=== PATIENT | male | born 1970 | race Caucasian/White ===

== ENCOUNTER 2024-06-12 15:04 | Outpatient (AMB) | payer OTHER, SELFPAY ==
--- NOTE | 2024-06-12 15:23 | MHC.OFFWIV ---
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 Patient Tobacco Use Status: Former Tobacco user Allergies No Known Allergies Allergy (Unverified 06/12/24 15:26) Do you need a note to return to daycare/school/sports/work: No HPI HPI Comments History of Present Illness Details This is a 54-year-old male with a past medical history of ndr-fhrywsc-[id number] diabetes and hypertension presenting for evaluation of left knee pain that he has had for the past 1 week. Patient states he has ?repeatedly? twisted his left knee over the past 2 weeks when climbing stairs or getting into his vehicle while staying at a friend's house. Patient has been taking ibuprofen 800 mg 3 times daily and using ice without complete relief of his discomfort. Patient denies any recent falls, trauma or motor vehicle accidents. [facility] Social History Patient Tobacco Use Status: Former Tobacco user Review of Systems Const All systems reviewed & are unremarkable except as noted in HPI and below Denies body aches, Denies chills, Denies fatigue and Denies fever(s) Eyes Reports no additional complaints ENT Reports no additional complaints Card Reports no additional complaints Resp Reports no additional complaints GI Reports no additional complaints Reports no additional complaints Musc Reports arthralgias (left knee) and Reports joint swelling (left knee) Skin/Breast Reports system reviewed and no additional complaints, except as documented Neuro Reports no additional complaints Psych Reports no additional complaints Endo Reports no additional complaints and Denies fatigue Maxx/Lymph Reports no additional complaints Aller/Immun Reports no additional complaints Physical Exam Vital Signs: Last Vital Signs Pulse 84 06/12/24 15: BP 122/90 H 06/12/24 15:26 Pulse Ox 95 06/12/24 15:26 Oxygen Delivery Method Room Air 06/12/24 15:26 Const General: cooperative, healthy appearing, comfortable and no acute distress Nutritional Appearance: overweight Orientation/consciousness: patient oriented x3 Limitations: no limitations Skin General skin exam: no rashes or lesions noted Neuro General: patient oriented x3 Extrem Left lower extremity: normal to inspection, full ROM, edema (mild subjective edema left knee with mild warmth; no erythema, no effusion), no joint enlargement and knee Details: tenderness (medial anterior knee pain to palpation, no joint laxity), knee ligament exam normal, Matthew's Test Details: negative medially and laterally and warmth (mild anterior left knee warmth to touch without erythema); ROM normal and no ecchymosis Psych Appearance: grossly normal Mental Status: mental status grossly normal Insight: Good insight present (Psych) Judgement: Good judgement present (Psych) Assessment & Plan Assessment & Plan (1) Strain of left knee: Comment: Patient will continue taking ibuprofen 800 mg 3 times daily and is declining any new prescriptions of other anti-inflammatories at this time. Patient is encouraged to obtain a knee sleeve for compression. Imaging is deferred at this time. Code(s): S86.912A - Strain of unspecified muscle(s) and tendon(s) at lower leg level, left leg, initial encounter Qualifiers: Encounter type: initial encounter Qualified Code(s): S86.912A - Strain of unspecified muscle(s) and tendon(s) at lower leg level, left leg, initial encounter Plan: Ibuprofen 800 mg t.i.d., neoprene knee sleeve for compression to be worn daily, elevate left lower extremity when at rest. Patient will follow up with primary care provider to receive a referral for physical therapy evaluation or orthopedics if his pain persists. Coding Level of Care Code Est Pt Level 3 (39766) Diagnoses Strain of left knee, initial encounter S86.912A Encounter type: initial encounter Time Spent (min) 20
[2024-06-12 15:26] VITALS: BP 122/90; PULSE 84; O2SAT 95
--- OUTSIDE RECORDS SUMMARY | 2024-06-12 18:24 | XMS_ITS | Encounter Summary ---
Author Organization [facility] [place] [address] [place] [address] Care Team Providers Care Irrigation Tax Assessor Collector Name Role Phone Unavailable Primary Care Provider Unavailabl e Prior Encounters Date Type Department Care Team Description 03/19/2019 Converted 13x Documents [facility] [address] [place] [address] <No scans attached> 03/19/2019 Converted CPS Chart Documents [facility] [address] [place] [address] <No scans attached> Plan of Treatment Not on file Procedures Procedure Name Priority Date/Time Associated Diagnosis Comments 30 O AMALGAM 1 SURFACE Routine 1 3:00 AM EDT 19 O AMALGAM 1 SURFACE Routine 1 3:00 AM EDT 14 O AMALGAM 1 SURFACE Routine 1 3:00 AM EDT COMPREHENSIVE ORAL EVALUATION - NEW OR ESTABLISHED PATIENT Routine 06/25/2020 3:00 AM EDT PANORAMIC RADIOGRAPHIC IMAGE Routine 06/25/2020 3:00 AM EDT INTRAORAL - COMPREHENSIVE SERIES OF RADIOGRAPHIC IMAGES Routine 06/25/2020 3:00 AM EDT INTRAORAL PHOTO Routine 06/25/2020 3:00 AM EDT INTRAORAL PHOTO Routine 06/25/2020 3:00 AM EDT INTRAORAL PHOTO Routine 06/25/2020 3:00 AM EDT INTRAORAL PHOTO Routine 06/25/2020 3:00 AM EDT Visit Diagnoses Not on file
--- OUTSIDE RECORDS SUMMARY | 2024-06-12 18:24 | XMS_ITS | Clinical Summary ---
Author Organization [facility] [place] Address [address] [place] [address] Care Team Providers Care Fortune Teller Name Role Phone Unavailable Primary Care Provider Unavailabl e Social History Tobacco Use Types Packs/Day Years Used Date Smoking Tobacco: Never Assessed Sex and Gender Information Value Date Recorded Sex Assigned at Not on file Legal Sex Male 9:28 PM PDT Gender Identity Not on file Sexual Orientation Not on file Plan of Treatment Not on file
== END 2024-06-12 16:23 | disposition home or self-care (01) ==
PROVIDERS: PCP Nurse Practitioner Family; Visit Provider Physician Assistant
DX: S86.912A Strain of unspecified muscle(s) and tendon(s) at lower leg level, left leg, initial encounter (principal)

== ENCOUNTER → 2024-06-12 15:04 | Outpatient (BNVA) | payer OTHER, SELFPAY | PROVIDERS: PCP Nurse Practitioner Family; Visit Provider Physician Assistant | DX: S86.912A Strain of unspecified muscle(s) and tendon(s) at lower leg level, left leg, initial encounter (principal); E11.9 Type 2 diabetes mellitus without complications; I10 Essential (primary) hypertension; X58.XXXA Exposure to other specified factors, initial encounter; Y93.9 Activity, unspecified; Y92.9 Unspecified place or not applicable; Y99.9 Unspecified external cause status | CPT/HCPCS: 99212 ==

== ENCOUNTER 2024-06-30 12:17 | Outpatient (REF) | payer OTHER, SELFPAY ==
--- NOTE | ~2024-06-30 | XR_ITS ---
CLINICAL HISTORY: M25.562 - Pain in left knee --- Additional Notes or Special Instructions: twisting SAUMYA, anterior lachmans positive. 4 view left knee Comparison: None Findings: No fractures or dislocations. No significant loss of joint space, osteophytes, or erosions. No joint effusion. No radiopaque foreign body. IMPRESSION: 1. No acute findings. This document has been electronically signed by: Richard Bond MD on 06/30/2024 15:03:25
== END 2024-06-30 12:18 | disposition home or self-care (01) ==
LOC: HO.HMGCX 12:17
PROVIDERS: PCP Nurse Practitioner Family; Visit Provider Physician Assistant Medical
DX: M25.562 Pain in left knee (principal); G89.29 Other chronic pain
CPT/HCPCS: 73564

== ENCOUNTER 2024-06-30 12:20 | Outpatient (AMB) | payer OTHER, SELFPAY ==
--- NOTE | 2024-06-30 13:08 | AM.OFFWIN_ITS ---
Intake Vital Signs 06/30/24 13:09 Weight 281 lb BP 140/90 H Blood Pressure Location Lt brachial Position Sitting Pulse 86 Pulse Source Pulse Oximeter Temp 98.1 F Temp Source Oral Pulse Oximetry (%) 97 Oxygen Delivery Method Room Air Intake Visit Reasons: EP knee swelling/pain still Patient Tobacco Use Status: Former Tobacco user Allergies No Known Allergies Allergy (Verified 09/24/24 10:22) Do you need a note to return to daycare/school/sports/work: No HPI EP knee swelling/pain still HPI Details 54-year-old male comes to the walk-in [facility] complaining of persistent/recurrent left knee pain and swelling after a twisting injury a few months ago. There was no fall directly onto the knee, and no recurrent trauma since then. However excessive ambulating, especially on stairs, aggravates his symptoms. He has done some icing, olsb-[id number] anti-inflammatories, and resting intermittently. No fever chills, myalgias or malaise, or systemic symptoms of infection/septic joint. [facility] Social History (Updated 08/10/24 @ 09:35 by ANSHUL Robles) Alcohol intake: former Patient Tobacco Use Status: Former Tobacco user Current occupational status: disabled Current occupation: right hand dominant Review of Systems Const All systems reviewed & are unremarkable except as noted in HPI and below Physical Exam Vital Signs: Last Vital Signs Temp 98.1 F 06/30/24 13:09 Pulse 86 06/30/24 13:09 BP 140/90 H 06/30/24 13:09 Pulse Ox 97 06/30/24 13:09 Oxygen Delivery Method Room Air 06/30/24 13:09 Const General: cooperative, healthy appearing, alert, awake, Physically active and well groomed; No anxious, diaphoretic, ill appearing, intoxicated appearing, poor hygiene or tired appearing Nutritional Appearance: average body habitus Limitations: no limitations Cardio Rate: regular rate Skin Other: Good color, warm and dry Extrem Other: left knee has mild diffuse edema, with TTP to medial JL and medial to the patella. No erythema or warmth or cellulitic features, and no palpable masses or cords. No laxity with varus/valgus stress, but tenderness. Positive anterior but negative posterior law tests. No distal edema, and NVI distally. Mildly antalgic gait favoring left leg. Psych Appearance: grossly normal Mental Status: mental status grossly normal Speech and movement: Normal speech and movement present Affect: normal affect Attitude: cooperative Thought process: Normal thought process present Insight: Good insight present (Psych) Judgement: Good judgement present (Psych) Assessment & Plan Assessment & Plan (1) Left knee pain: Code(s): M25.562 - Pain in left knee Qualifiers: Chronicity: chronic Qualified Code(s): M25.562 - Pain in left knee; G89.29 - Other chronic pain Plan: Patient is a 54-year-old male who comes to the walk-in clinic complaining of left knee pain that has persisted since it twisting mechanism of injury. Plain x-ray today shows no obvious acute trauma, however there is diffuse swelling to the knee and testing is suspicious for a possible ACL tear or meniscus injury. I told him that he should follow up with primary care or an orthopedist to consider an MRI, or start with physical therapy if that is what is advised. He does not come here for primary care so we are unable to do referrals for him at this time. I wrote him for a course of anti-inflammatories, and advised that he ice as needed, and elevate as needed. I offered a work note, which he declined. If pain becomes severe or there is symptoms worrisome for a septic joint or a clot, he should go to the emergency department. Orders: Orders XR knee LT 4V 06/30/24 M25.562 - Pain in left knee Referrals Orthopedics Referral S86.912A - Strain of unspecified muscle(s) and tendon(s) at lower leg level, left leg, initial encounter Medications: New meloxicam If 1 tablet is not effective, take 2 tablets (to a total of 15 mg) ONCE A DAY. Wean down medication once pain is for 5-7 days if able 7.5 mg PO DAILY PRN 30 tabs 0RF knee pain Coding Level of Care Code Est Pt Level 4 (25542) Diagnoses Chronic pain of left knee M25.562; G89.29 Chronicity: chronic
[2024-06-30 13:09] VITALS: BP 140/90; PULSE 86; TEMP 36.7; O2SAT 97
== END 2024-06-30 14:50 | disposition home or self-care (01) ==
PROVIDERS: PCP Nurse Practitioner Family; Visit Provider Physician Assistant Medical
DX: M25.562 Pain in left knee (principal); G89.29 Other chronic pain

== ENCOUNTER → 2024-06-30 13:59 | Outpatient (BNV) | payer OTHER, SELFPAY | PROVIDERS: PCP Nurse Practitioner Family; Visit Provider Radiology Diagnostic Radiology | DX: M25.562 Pain in left knee (principal) | CPT/HCPCS: 73564 ==

== ENCOUNTER 2024-07-12 13:09 | Emergency (ER) | payer OTHER, SELFPAY ==
[2024-07-12 13:14] VITALS: BP 147/88; PULSE 79; RESP 16; TEMP 36.4; O2SAT 94; BMI 38.0
--- NOTE | 2024-07-12 13:19 | ED_ITS ---
HPI - General Adult General Chief complaint: Extremity Injury, Lower Stated complaint: l knee pain Time Seen by Provider: 07/12/24 13:39 Source: patient, RN notes reviewed and old records reviewed Mode of arrival: ambulatory Limitations: no limitations History of Present Illness ED Provider: Bell HPI narrative: 54-year-old male presents for evaluation of left knee pain. The patient reports a twisting injury about 3 months ago. He reports treating with rest, ice, ibuprofen with no improvement over the last 3 months. He went to urgent care 2 weeks ago and had an x-ray that was reportedly normal. He was then instructed to go to the ER for ?an MRI or CAT scan of the knee. ? The patient recently moved here from [place] and he does not have a primary doctor. He has an appointment with Dr. Majano, orthopedics at the end of August Related Data Home Medications ?Medication ?Instructions ?Recorded ?Confirmed aspirin 81 mg tablet,delayed mg PO 06/12/24 release atenolol 50 mg tablet 50 mg PO DAILY 06/12/24 atorvastatin 80 mg tablet 80 mg PO DAILY 06/12/24 benztropine 1 mg tablet 1 mg PO BID 06/12/24 divalproex 500 mg tablet,extended mg PO 06/12/24 release 24 hr metformin 1,000 mg tablet 1,000 mg PO DAILY 06/12/24 quetiapine 400 mg tablet 400 mg PO BEDTIME 06/12/24 Previous Rx's ?Medication ?Instructions ?Recorded meloxicam 7.5 mg tablet 7.5 mg PO DAILY PRN knee pain #30 06/30/24 tabs Allergies Allergy/AdvReac Type Severity Reaction Status Date / Time No Known Allergies Allergy Verified 07/12/24 13:18 Review of Systems Musculoskeletal: Musculoskeletal: Reports arthralgias, Reports joint swelling and Reports limited range of motion PMFSH Social History Social History Patient Tobacco Use Status: Former Tobacco user Advance Directives: No Advance Directives Information Provided: Yes Do you have a plan to hurt others: No Plan Physical Exam ED Vital Signs: Vital Signs - 24 hr 07/12/24 13:14 07/12/24 14:18 Temperature 97.5 F 97.5 F Pulse Rate 79 79 Respiratory Rate 16 16 Blood Pressure 147/88 H 147/88 H Pulse Oximetry 94 94 Oxygen Delivery Method Room Air Room Air BMI result Body Mass Index 38.0 Const General: healthy appearing, comfortable, no acute distress, alert and awake Nutritional Appearance: well nourished Orientation/consciousness: patient oriented x3 HENMT Head: Yes normocephalic and Yes atraumatic Neck Neck: Yes full ROM Skin General skin exam: elasticity normal Neuro General: patient oriented x3 Cranial nerves: Yes Bilaterally intact EOM present Cognition (Neuro): normal cognition Extrem Other: Patient has mild left knee edema globally. He has some tenderness over the medial aspect of the left knee. He is able to extend the leg 180? without any difficulty. There is no calf tenderness or edema. Course Course Course Narrative: RME, this is a rapid medical exam performed by Aristides Luu please refer to primary provider for complete H&P- 54-year-old male presents for evaluation of left knee pain. He had an injury 3 months ago, an x-ray about 2 weeks ago that was normal. He was sent to the ER for further evaluation and management. Medical Decision Making Medical Decision Making MDM Narrative: 54-year-old male presents for evaluation of a remote left knee injury. This happened about 3 months ago. He is ambulatory, he is having trouble getting outpatient follow up, his x-ray is in the computer system that is unremarkable. There is no indication for further emergent imaging at this time. There is no evidence to suggest DVT. It is possible that he has a meniscus or ligamentous injury and will likely benefit from outpatient imaging. I discussed with orthopedicsChristopher who will attempt to get the patient's appointment expedited Differential Diagnosis Differential Diagnoses: The differential diagnosis associated with the presentation includes Left knee injury Knee sprain ACL injury Meniscus injury Discharge Plan Discharge Clinical Impression: Injury of knee, left Patient Disposition: Home, Self-Care Instructions: ACL Injury (ED), Knee Pain (ED) Additional Instructions: Your x-ray as an outpatient does not show any abnormalities. It is likely that you have a meniscus or ligamentous injury. It is important that you follow up with Orthopedics, they will try to expedite your appointment, call on Tuesday to check in In the meantime, you may continue with ibuprofen, Tylenol, ice and rest Prescriptions: No Action metformin 1,000 mg tablet 1,000 mg PO DAILY divalproex 500 mg tablet extended release 24 hr PO atenolol 50 mg tablet 50 mg PO DAILY aspirin 81 mg tablet,delayed release (DR/EC) PO atorvastatin 80 mg tablet 80 mg PO DAILY quetiapine 400 mg tablet 400 mg PO BEDTIME benztropine 1 mg tablet 1 mg PO BID meloxicam 7.5 mg tablet 7.5 mg PO DAILY PRN (Reason: knee pain) Qty: 30 0RF Rx Instructions: If 1 tablet is not effective, take 2 tablets (to a total of 15 mg) ONCE A DAY. Wean down medication once pain is for 5-7 days if able Referrals: [facility] [place] [facility] [Provider Group] (left knee injury) Interventions: ED Discharge Assessment Last Done: 07/12/24 14:18 Discharge Date/Time: 07/12/24 14:19 Print Language: Slovenian
[2024-07-12 14:18] VITALS: BP 147/88; PULSE 79; RESP 16; TEMP 36.4; O2SAT 94
== END 2024-07-12 14:19 | disposition home or self-care (01) ==
PROVIDERS: Emergency Provider Emergency Medicine; PCP Nurse Practitioner Family
DX: M25.562 Pain in left knee (principal); S89.92XA Unspecified injury of left lower leg, initial encounter; X58.XXXA Exposure to other specified factors, initial encounter; Y93.9 Activity, unspecified; Y92.9 Unspecified place or not applicable; Y99.9 Unspecified external cause status
CPT/HCPCS: 99282

== ENCOUNTER 2024-08-10 08:31 | Outpatient (REF) | payer OTHER, SELFPAY ==
--- NOTE | ~2024-08-10 | XR_ITS ---
EXAMINATION: XR KNEE, LEFT CLINICAL INFORMATION: M25.562 - Pain in left knee COMPARISON: None available. TECHNIQUE: AP bilateral standing, lateral, and sunrise views of the left knee. FINDINGS: There is mild narrowing of the medial greater than lateral joint spaces. There are no osteophytes. There is no joint effusion. XR/XR knee LT 3V IMPRESSION: Mild nonspecific joint space narrowing. Electronically signed by: Holger Rios MD 08/10/2024 10:40 AM EDT
== END 2024-08-10 08:32 | disposition home or self-care (01) ==
LOC: HO.HOSX 08:31
DX: M25.562 Pain in left knee (principal); M23.92 Unspecified internal derangement of left knee
CPT/HCPCS: 73562; 99202

== ENCOUNTER 2024-08-10 09:20 | Outpatient (AMB) | payer OTHER, SELFPAY ==
--- NOTE | 2024-08-10 09:33 | MHC.OFFVIS ---
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 Patient reports a twisting injury to the left knee about 4 months ago. He expresses since this injury he has continued to re-sprain the left knee. States any type of ambulation, especially stairs, exacerbates the pain in his bilateral knees, greater in the left than the right. Patient says his pain is located on the anterior aspect of the knees and radiates into the medial aspect. He has tried and failed rest, ice, ibuprofen for his symptoms. Denies any other trauma to the knees. Hx of Type 2 DM, takes metformin for this condition. 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 Patient reports a twisting injury to the left knee about 4 months ago. He expresses since this injury he has continued to re-sprain the left knee. States any type of ambulation, especially stairs, exacerbates the pain in his bilateral knees, greater in the left than the right. Patient says his pain is located on the anterior aspect of the knees and radiates into the medial aspect. Left knee is much more bothersome than the right. He has tried and failed rest, ice, ibuprofen for his symptoms. Denies any other trauma to the knees. Hx of Type 2 DM, takes metformin for this condition. [facility] Social History (Updated 08/10/24 @ 09:35 by ANSHUL Robles) Alcohol intake: former Patient Tobacco Use Status: Former Tobacco user Current occupational status: disabled Current occupation: right hand dominant Review of Systems Const All systems reviewed & are unremarkable except as noted in HPI and below Physical Exam Vital Signs: BMI result Body Mass Index 37.3 Extrem Other: Patient's left knee normal to inspection No erythema, ecchymosis, edema noted No lacerations, abrasions, open areas No evidence of infection Patient reports no tenderness to palpation of the anterior knee, quad tendon, patellar tendon, medial or lateral joint line, medial and lateral knee, posterior knee. No discomfort with range of motion of the left knee Patient is able to extend the left knee fully and flex to approximately 110 degrees without difficulty Positive Ora's test in the left, in the medial compartment Negative Ora's on the right No ligamentous laxity with varus and valgus testing of the left knee Negative anterior drawer Negative posterior drawer Distal sensation intact Capillary refill brisk Results Reviewed Results Reviewed: X-rays obtained in the office today and independently reviewed by me, Christopher Thomas PA-C, demonstrate mild osteoarthritis of bilateral knees. Assessment & Plan Assessment & Plan (1) Internal derangement of left knee: Code(s): M23.92 - Unspecified internal derangement of left knee Category: Medical Plan 1. Internal derangement of left knee Patient is educated about this condition Patient is educated about the treatment options available At this time, patient is ordered MRI, as I have a high index of suspicion for potential meniscal injury Patient is also referred to physical therapy for range of motion, strengthening, gait training, stabilization of the left knee Patient is amenable to this plan Follow-up after MRI to discuss further treatment options, sooner with any acute concerns Orders: Orders XR knee LT 3V Today M25.562 - Pain in left knee PT Evaluation and Treatment Today M23.92 - Unspecified internal derangement of left knee MR knee LT wo con Today M17.12 - Unilateral primary osteoarthritis, left knee Coding Level of Care Code New Pt Level 3 (35491) Diagnoses Internal derangement of left knee M23.92
[2024-08-10 09:39] VITALS: BMI 37.3
--- OUTSIDE RECORDS SUMMARY | 2024-08-10 09:44 | XMS_ITS | Clinical Summary ---
Author Organization [facility] Address [address] [place] [address] Care Team Providers Care Terminal Gauger Name Role Phone Unavailable Primary Care Provider [...]
== END 2024-08-10 10:01 | disposition home or self-care (01) ==
PROVIDERS: PCP Nurse Practitioner Family
DX: M23.92 Unspecified internal derangement of left knee (principal)
CPT/HCPCS: 99203

== ENCOUNTER → 2024-08-10 09:21 | Outpatient (BNV) | payer OTHER, SELFPAY | PROVIDERS: Visit Provider Radiology Diagnostic Radiology | DX: M25.562 Pain in left knee (principal) | CPT/HCPCS: 73562 ==

== ENCOUNTER → 2024-08-16 07:46 | Outpatient (BNV) | payer OTHER, SELFPAY | PROVIDERS: Visit Provider Radiology Diagnostic Radiology | DX: S83.232A Complex tear of medial meniscus, current injury, left knee, initial encounter (principal); M25.462 Effusion, left knee | CPT/HCPCS: 73721 ==

== ENCOUNTER 2024-08-16 07:52 | Outpatient (REF) | payer OTHER, SELFPAY ==
--- NOTE | ~2024-08-16 | MR_ITS ---
EXAMINATION: MR KNEE WITHOUT CONTRAST, LEFT CLINICAL INFORMATION: Left knee pain, medial, anterior, posterior. Symptoms x4 months. Unilateral primary osteoarthrosis, left knee COMPARISON: No prior MRI . Correlation made with radiographs left knee 08/10/2024. TECHNIQUE: MRI of the left knee without contrast was performed using routine sequences on a 1.5 Raya Siemens high-field scanner. FINDINGS: MENISCI: Medial Meniscus: There is a horizontal complex appearing cleavage tear involving the body and posterior horn of the medial meniscus. There is truncation of the free margin of the body and posterior horn. Anterior horn appears intact. Lateral Meniscus: Intact, normal in morphology and signal, without definite tear identified. LIGAMENTS: Anterior Cruciate: Intact and normal in signal. Posterior Cruciate: Intact and normal in signal. Medial Collateral: Intact and normal in signal. Lateral Collateral Complex: The biceps femoris tendon, conjoined tendon, fibular collateral ligament, and popliteus tendon are intact and normal in signal. The popliteus muscle is normal in signal. The iliotibial band is normal in signal. EXTENSOR MECHANISM: Intact and normal in signal. The prefemoral fat pad, suprapatellar fat pad, and Hoffa's fat pad are normal in signal. PATELLAR RETINACULUM: Intact bilaterally and normal in signal. The medial patellofemoral ligament is intact. BONE: There is a trace amount of bone marrow edema involving the posterolateral corner of the medial tibial plateau, likely degenerative or related to a small contusion. Otherwise, no gross bone marrow edema or abnormal infiltrating bone marrow signal is present. There are no foci of chondral bone plate edema. There is a bone island in the medial femoral condyle. JOINTS/CARTILAGE: Medial Compartment: Mild to moderate cartilage thinning, superficial eburnation within the medial compartment without full-thickness defect. There are small marginal osteophytic spurs present. Mild loss of joint space. No subchondral bone plate edema. Lateral Compartment: Cartilage is grossly preserved as is the joint space. There is no cartilaginous defect or focus of subchondral bone plate edema. Patellofemoral Compartment: The medial and lateral patellar facet cartilage is mildly thinned. There are no full-thickness defects. Cartilage within the femoral trochlea is normal. No significant osteophytic spurring. Normal alignment. No subchondral bone plate edema. JOINT FLUID AND BURSAE: There is a small joint effusion present. As is the long uncertain etiology. The major bursal structures are normal. OTHER: Trace fluid in the medial popliteal fossa. The imaged musculature is normal in signal. MR/MR knee LT wo con IMPRESSION: 1. Complex horizontal cleavage tear of the body and posterior horn of the medial meniscus. 2. The Lateral meniscus, and major ligamentous structures are otherwise intact. 3. 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 Small amount of bone marrow edema involving the posterolateral corner of the medial tibial plateau, likely degenerative or possibly related to a small contusion. 4. Minimal degenerative arthritis in the patellofemoral compartment. 5. Small joint effusion present. Electronically signed by: Sadi Young MD 08/16/2024 08:51 AM EDT
--- OUTSIDE RECORDS SUMMARY | 2024-08-16 07:55 | XMS_ITS | Clinical Summary ---
Author Organization [facility] Address [address] [place] [address] Care Team Providers Care Printing Supervisor Name Role Phone Unavailable Primary Care Provider [...]
== END 2024-08-16 07:53 | disposition home or self-care (01) ==
LOC: HO.MRI 07:52
DX: M17.12 Unilateral primary osteoarthritis, left knee (principal)
CPT/HCPCS: 73721

== ENCOUNTER 2024-09-24 10:15 | Outpatient (AMB) | payer OTHER, SELFPAY ==
[2024-09-24 10:21] VITALS: BMI 37.3
--- NOTE | 2024-09-24 10:21 | A.OFFVIS_ITS ---
Vital Signs 09/24/24 10:21 Height 6 ft Weight 275 lb BMI 37.3 Intake Visit Reasons: OV-LT knee MRI review Intake Note: Josh is a 54 year old male who presents today for an MRI review of his left knee. Patient has been wearing a sleeve with some support. He is not taking anything for pain at this time. Denies new injuries to the left knee, clicking, popping, or giving away. Allergies No Known Allergies Allergy (Verified 09/24/24 10:22) HPI HPI OV-LT knee MRI review: Details: Josh is a 54 year old male who presents today for an MRI review of his left knee. Patient has been wearing a sleeve with some support. Patient reports that his symptoms have improved significantly since previous evaluation, and his pain is minimal at this time, only tends to occur with ambulation up and down stairs. He is not taking anything for pain at this time. Denies new injuries to the left knee, clicking, popping, or giving away. [facility] Social History (Updated 08/10/24 @ 09:35 by ANSHUL Robles) Alcohol intake: former Patient Tobacco Use Status: Former Tobacco user Current occupational status: disabled Current occupation: right hand dominant Review of Systems Const All systems reviewed & are unremarkable except as noted in HPI and below Physical Exam Vital Signs: BMI result Body Mass Index 37.3 Extrem Other: Patient's left knee normal to inspection No erythema, ecchymosis, edema noted No lacerations, abrasions, open areas No evidence of infection Patient reports no tenderness to palpation of the anterior knee, quad tendon, patellar tendon, medial or lateral joint line, medial and lateral knee, posterior knee. No discomfort with range of motion of the left knee Patient is able to extend the left knee fully and flex to approximately 110 degrees without difficulty Negative Ora's of the left knee Negative Ora's on the right No ligamentous laxity with varus and valgus testing of the left knee Negative anterior drawer Negative posterior drawer Distal sensation intact Capillary refill brisk Results Reviewed Results Reviewed: MRI of the left knee: MR/MR knee LT wo con IMPRESSION: 1. Complex horizontal cleavage tear of the body and posterior horn of the medial meniscus. 2. The Lateral meniscus, and major ligamentous structures are otherwise intact. 3. 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 Small amount of bone marrow edema involving the posterolateral corner of the medial tibial plateau, likely degenerative or possibly related to a small contusion. 4. Minimal degenerative arthritis in the patellofemoral compartment. 5. Small joint effusion present. Electronically signed by: Sadi Young MD 08/16/2024 Assessment & Plan Assessment & Plan (1) Tear of meniscus of left knee: Code(s): S83.207A - Unspecified tear of unspecified meniscus, current injury, left knee, initial encounter Category: Medical Plan 1. Medial meniscus tear of left knee Date of injury in approximately March Patient is educated about this condition Patient is educated about the typical treatment course At this time, as the patient is improving with no active intervention, I advised the patient that I feel physical therapy is going to be the most advantageous route of treatment for him However, the patient declines referral to physical therapy at this time, stating that he feels that he is making steady improvement in his own and would like to continue with this plan at this time Patient is educated that if his symptoms stop improving or begin to worsen, he should call us for re-evaluation and discussion of potential further treatment options, including but not limited to left knee arthroscopy Patient understands this in his amenable to this plan Follow-up as needed Coding Level of Care Code Est Pt Level 3 (03500) Diagnoses Tear of meniscus of left knee S83.207A
--- OUTSIDE RECORDS SUMMARY | 2024-09-24 11:18 | XMS_ITS | Clinical Summary ---
Author Organization [facility] Address [address] [place] [id number] Phone Care Team Providers Care Commercial Fishing Vessel Operator Name Role Phone Pcp, Unknown Primary Care Provider Unavailabl e Allergies No known active allergies Medications quetiapine fumarate (SEROQUEL ORAL) Take 50 mg by mouth 2 (two) times a day as needed (for moderate anxiety). Active ALBUTEROL INHL Inhale 90 mg into the lungs. 2 puffs every four hours PRN Active sildenafiL (VIAGRA) 100 mg tablet Take 100 mg by mouth daily as needed (take one hour prior to sexual activity). Active thiamine (VITAMIN B-1) 100 MG tablet Take 100 mg by mouth daily. Active allopurinol (ZYLOPRIM) 300 MG tablet Take 300 mg by mouth daily. Active nicotine polacrilex (NICORETTE) [address] 2 mg inside cheek as needed for smoking cessation (every two hours). Active atenolol (TENORMIN) 50 mg tablet Take 50 mg by mouth daily. Active atorvastatin (LIPITOR) 20 MG tablet Take 20 mg by mouth daily. Active bumetanide (BUMEX) 0.5 MG tablet Take 0.5 mg by mouth daily. Active divalproex (DEPAKOTE ER) 500 MG ER 24 hr tablet Take 1,500 mg by mouth daily. Active gabapentin (NEURONTIN) 300 MG capsule Take 300 mg by mouth 2 (two) times a day. Active hydrOXYzine (ATARAX) 50 MG tablet Take 50 mg by mouth 2 (two) times a day as needed for itching. Active metFORMIN (GLUCOPHAGE) 500 MG tablet Take 500 mg by mouth 2 (two) times a day with meals. Active Social History Tobacco Use Types Packs/Day Years Used Date Smoking Tobacco: Every Day Cigarettes Alcohol Use Standard Drinks/Week Comments Yes 0 (1 standard drink = 0.6 oz pur e alcohol) 25 drinks per day Education Answer Date Recorded Are you interested in more education? Not on scott e 06/25/2022 Are you concerned about learning? Not on file 06/25/2022 No 06/25/2022 No 06/25/2022 Digital Access Answer Date Recorded No 07/24/2022 No 07/24/2022 No 07/24/2022 Reliable internet access at home? Not on file 07/24/2022 Device with a working camera? Not on file Sex and Gender Information Value Date Recorded Sex Assigned at Male 05/07/2019 8:26 AM EDT Legal Sex Male 9:32 PM EDT Gender Identity Male 05/07/2019 8:26 AM EDT Sexual Orientation Straight 05/07/2019 8: 26 AM EDT Last Filed Vital Signs Vital Sign Reading Time Taken Comments Blood Pressure 125/77 05/08/2019 4:26 PM EDT Pulse 68 05/08/2019 4:26 PM EDT Temperature 36.5 C (97.7 F) 05/08/2019 8:45 AM EDT Respiratory Rate 22 05/08/2019 4:25 PM EDT Oxygen Saturation 96% 05/08/2019 4:25 PM EDT Inhaled Oxygen Concentration - - Weight 128.4 kg (283 lb) 05/07/2019 8:19 AM EDT Height 182.9 cm (6') 05/07/2019 8:19 AM EDT Body Mass Index 38.38 05/07/2019 8:19 AM EDT Plan of Treatment Health Maintenance Due Date Last Done Comments Adult Td,Tdap Booster 1972 LIPID PANEL 1972 DEPRESSION SCREENING 1984 SMOKING Hx and SMOKELESS TOBACCO SCREENING 02/15/1985 HEPATITIS C SCREENING 02/15/1990 HIV ONE-TIME SCREENING (18-6 5 YEARS) 02/15/1990 PNEUMOCOCCAL VACCINES (50+ years) (1 of 2 - PCV) 02/15/1991 COLOGUARD 02/15/2017 COLONOSCOPY 02/15/2017 COLORECTAL CANCER SCREENING 02/15/2017 FIT TEST 02/15/2017 FOBT 02/15/2017 SIGMOIDOSCOPY 02/15/2017 VIRTUAL COLONOSCOPY 02/15/2017 VALPROIC ACID (DEPAKENE) LEVEL 05/06/2020 05/07/2019 CREATININE LEVEL 05/07/2020 05/08/2019, 05/07/2019 ZOSTER VACCINES (1 of 2) 02/15/2022 COVID-19 VACCINE (1 - 2023-2 5 season) 2023 HEPATITIS A VACCINES Aged Out No long er eligible based on patient's age to complete this topic HIB VACCINES Aged Out No longer eligi ble based on patient's age to complete this topic MENINGOCOCCAL VACCINES (ACWY) Aged Out No longer eligible based on patient's age to complete this topic MENINGOCOCCAL VACCINES (B) Aged Out N o longer eligible based on patient's age to complete this topic Medical Devices Not on file Procedures Procedure Name Priority Date/Time Associated Diagnosis Comments BASIC METABOLIC PANEL STAT 05/08/2019 2:23 PM EDT VALPROIC ACID STAT 05/07/2019 8:44 AM EDT from Last 3 Months or Most Recently Relevant to Health Maintenance Results * (ABNORMAL) Basic metabolic panel (05/08/2019 2:23 PM EDT) SODIUM 136 133 - 146 mmol/L [facility] CHLORIDE 99 96 - 108 mmol/L [facility] POTASSIUM 3.3 3.3 - 5.1 mmol/L [facility] CO2 27 21 - 35 mmol/L [facility] BUN 10 6 - 19 mg/dL [facility] CREATININE 0.70 0.5 - 1.5 mg/dL [facility] GLUCOSE 146(H) 70 - 99 mg/dL [facility] CALCIUM 9.2 8.4 - 10.3 mg/dL [facility] EGFR 112 >59 mL/min/1.7 3m2 [facility] Comment:If patient is black, multiply result by 1.159. Estimated glomerular filtration rate calculated using the CKD-EPI equation. ANION GAP 13 10 - 20 mmol/L [facility] Blood 05/08/2019 2:23 PM EDT 05/08/2019 2:30 PM EDT us Gato Ewing MD LAB BLOOD ORDERABLES Fin al Result [address] [address] * (ABNORMAL) Valproic acid (05/07/2019 8:44 AM EDT) VALPROIC ACID 38.5(L) 50.0 - 100.0 ug/mL [facility] Blood 05/07/2019 8:44 AM EDT 05/07/2019 8:49 AM EDT Alisha Murry PA-C LAB BLOOD ORDERABLES Elena l Result Performing Organization Address City/[facility]/ZIP Co de Phone Number [address] [address] from Last 3 Months or Most Recently Relevant to Health Maintenance Insurance [facility] [place] [address] [place] [address] [facility] Care Teams Commercial Fishing Vessel Operator Relationship Specialty Start Date End Date Pcp, Unknown PCP - General 05/07/19 Additional Source Comments The information contained in this document represents components of the legal health record. It is not the complete legal health record.[facility]
--- OUTSIDE RECORDS SUMMARY | 2024-09-24 11:18 | XMS_ITS | Clinical Summary ---
Author Organization [facility] Health Address [address] [place] [address] Care Team Providers Care Production Underwriter Name Role Phone Unavailable Primary Care Provider [...]
== END 2024-09-24 10:48 | disposition home or self-care (01) ==
LOC: HO.HOS 10:15
DX: S83.207A Unspecified tear of unspecified meniscus, current injury, left knee, initial encounter (principal)
CPT/HCPCS: 99213

== ENCOUNTER → 2024-09-24 10:15 | Outpatient (BNVA) | payer OTHER, SELFPAY | DX: Z71.2 Person consulting for explanation of examination or test findings (principal); S83.207A Unspecified tear of unspecified meniscus, current injury, left knee, initial encounter | CPT/HCPCS: 99212 ==

== ENCOUNTER 2024-11-13 09:46 | Outpatient (AMB) | payer OTHER, SELFPAY ==
[2024-11-13 09:51] VITALS: BMI 37.3
--- NOTE | 2024-11-13 09:51 | A.OFFVIS_ITS ---
Vital Signs 11/13/24 09:51 Height 6 ft Weight 275 lb BMI 37.3 Intake Visit Reasons: OV - LT knee pain, discuss surgery Intake Note: Josh is a 54 year old male who presents today for follow up his Left Knee Meniscus Tear. At his last visit on 09/24/24 a referral to Physical Therapy was offered but declined. At that time patient felt he was making steady improvement. Today, patient wishes to discuss surgery. He feels like his symptoms have not improved. He continues wearing sleeves on both knees. He is not taking anything for pain at this time. History of Type 2 Diabetes Mellitus, A1C done recently ~6.2%. Allergies No Known Allergies Allergy (Verified 11/13/24 09:54) HPI HPI OV - LT knee pain, discuss surgery: Details: Josh is a 54 year old male who presents today for follow up his Left Knee Meniscus Tear. At his last visit on 09/24/24 a referral to Physical Therapy was offered but declined. At that time patient felt he was making steady improvement. Today, patient wishes to discuss surgery. He feels like his symptoms have not improved. Patient states he continues to have difficulty with prolonged walking, and particularly with going up and down stairs. He continues wearing sleeves on both knees. He is not taking anything for pain at this time. History of Type 2 Diabetes Mellitus, A1C done recently ~6.2%. [facility] Social History Alcohol intake: former Patient Tobacco Use Status: Former Tobacco user Current occupational status: disabled Current occupation: right hand dominant Review of Systems Const All systems reviewed & are unremarkable except as noted in HPI and below Physical Exam Vital Signs: BMI result Body Mass Index 37.3 Extrem Other: Patient's left knee normal to inspection No erythema, ecchymosis, edema noted No lacerations, abrasions, open areas No evidence of infection Patient reports no tenderness to palpation of the anterior knee, quad tendon, patellar tendon, medial or lateral joint line, medial and lateral knee, posterior knee. No discomfort with range of motion of the left knee Patient is able to extend the left knee fully and flex to approximately 110 degrees without difficulty Negative Ora's of the left knee Negative Ora's on the right No ligamentous laxity with varus and valgus testing of the left knee Negative anterior drawer Negative posterior drawer Distal sensation intact Capillary refill brisk Results Reviewed Results Reviewed: IMPRESSION: 1. Complex horizontal cleavage tear of the body and posterior horn of the medial meniscus. 2. The Lateral meniscus, and major ligamentous structures are otherwise intact. 3. 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 Small amount of bone marrow edema involving the posterolateral corner of the medial tibial plateau, likely degenerative or possibly related to a small contusion. 4. Minimal degenerative arthritis in the patellofemoral compartment. 5. Small joint effusion present. Electronically signed by: Sadi Young MD Assessment & Plan Assessment & Plan (1) Tear of meniscus of left knee: Code(s): S83.207A - Unspecified tear of unspecified meniscus, current injury, left knee, initial encounter Category: Medical Plan 1. Horizontal cleavage tear of body and posterior horn of medial meniscus of the left knee Patient is educated about this condition Patient is educated about the typical treatment course At this time, patient is referred to Dr. Hansen for surgical consult for left knee arthroscopy in the setting of meniscal tear Patient is educated he should continue doing the exercises and conservative pain management measures he has been working with previously Patient understands this in his amenable to this plan Follow-up with Dr. Hansen Coding Level of Care Code Est Pt Level 3 (63069) Diagnoses Tear of meniscus of left knee S83.207A
--- OUTSIDE RECORDS SUMMARY | 2024-11-13 12:30 | XMS_ITS | Clinical Summary ---
Author Organization [facility] Health Address [address] [place] [address] Care Team Providers Care Accountant Helper Name Role Phone Unavailable Primary Care Provider [...]
--- OUTSIDE RECORDS SUMMARY | 2024-11-13 12:30 | XMS_ITS | Clinical Summary ---
Author Organization [facility] Address [address] [place] [address] Phone Care Team Providers Care Program Assistant Name Role Phone Pcp, Unknown Primary Care [...] 05/07/2019 ZOSTER VACCINES (1 of 2) 02/15/2022 INFLUENZA VACCINE (#1) 2024 COVID-19 VACCINE (1 - 2023-2 5 season) 2024 HEPATITIS A VACCINES Aged Out No long [...] EDT) SODIUM 136 133 - 146 mmol/L [facility] CHLORIDE 99 96 - 108 mmol/L [facility] POTASSIUM 3.3 3.3 - 5.1 mmol/L [facility] CO2 27 21 - 35 mmol/L [facility] BUN 10 6 - 19 mg/dL [facility] CREATININE 0.70 0.5 - 1.5 mg/dL [facility] GLUCOSE 146(H) 70 - 99 mg/dL [facility] CALCIUM 9.2 8.4 - 10.3 mg/dL [facility] EGFR 112 >59 mL/min/1.7 3m2 [facility] Comment:If patient is black, multiply result by 1.159. Estimated glomerular filtration rate calculated using the CKD-EPI equation. ANION GAP 13 10 - 20 mmol/L [facility] Blood 05/08/2019 2:23 PM EDT 05/08/2019 2:30 PM EDT us Gato Ewing MD LAB BLOOD ORDERABLES Fin al Result [address] [address] * (ABNORMAL) Valproic acid (05/07/2019 8:44 AM EDT) VALPROIC ACID 38.5(L) 50.0 - 100.0 ug/mL [facility] Blood 05/07/2019 8:44 AM EDT 05/07/2019 8:49 AM EDT Alisha Murry PA-C LAB BLOOD ORDERABLES Elena l Result Performing Organization Address City/[facility] Co de Phone Number [address] [address] from Last 3 Months or Most Recently Relevant to Health Maintenance Insurance [facility] [place] [place] [address] [place] [address] [place] [address] [facility] Care Teams Program Assistant Relationship Specialty Start Date End Date Pcp, Unknown PCP - General 05/07/19 Additional Source Comments The information contained in this document represents components of the legal health record. It is not the complete legal health record.[facility]
--- OUTSIDE RECORDS SUMMARY | 2024-11-13 12:30 | XMS_ITS | Encounter Summary ---
Author Organization [facility] Health Address [address] [place] [address] Care Team Providers Care Bowling Or Skating Front Desk Clerk Name Role Phone Unavailable Primary Care Provider Unavailabl e Prior Encounters Date Type Department Care Team Description 03/19/2019 Converted 13x Documents [facility] [address] [place] [address] <No scans attached> 03/19/2019 Converted CPS Chart Documents [facility] [address] [place] [address] <No scans attached> Plan of Treatment Not on file Procedures Procedure Name Priority Date/Time Associated Diagnosis Comments 30 O AMALGAM 1 SURFACE Routine 1 3:00 AM EDT 19 O AMALGAM 1 SURFACE Routine 1 3:00 AM EDT 14 O AMALGAM 1 SURFACE Routine 3:00 AM EDT COMPREHENSIVE ORAL EVALUATION - [...]
== END 2024-11-13 10:33 | disposition home or self-care (01) ==
LOC: HO.HOS 09:46
PROVIDERS: PCP Nurse Practitioner Family
DX: S83.207A Unspecified tear of unspecified meniscus, current injury, left knee, initial encounter (principal)
CPT/HCPCS: 99213

== ENCOUNTER → 2024-11-13 09:46 | Outpatient (BNVA) | payer OTHER, SELFPAY | PROVIDERS: PCP Nurse Practitioner Family | DX: M25.562 Pain in left knee (principal); S83.207A Unspecified tear of unspecified meniscus, current injury, left knee, initial encounter | CPT/HCPCS: 99212 ==

== ENCOUNTER 2024-12-03 14:11 | Outpatient (AMB) | payer OTHER, SELFPAY ==
--- NOTE | 2024-12-03 14:13 | A.OFFVIS_ITS ---
Vital Signs 12/03/24 14:14 Height 6 ft Weight 275 lb BMI 37.3 Intake Visit Reasons: OV- Discuss L knee Intake Note: Josh is a 54 year old male who presents today for a follow up of his left knee. He was last seen with Christopher Thomas where he reported a twisting injury to the left knee at the beginning of this year. MRI was obtained and reviewed with a plan to refer for further surgical discussion MPRESSION: 1. Complex horizontal cleavage tear of the body and posterior horn of the medial meniscus. 2. The Lateral meniscus, and major ligamentous structures are otherwise intact. 3. 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 Small amount of bone marrow edema involving the posterolateral corner of the medial tibial plateau, likely degenerative or possibly related to a small contusion. 4. Minimal degenerative arthritis in the patellofemoral compartment. 5. Small joint effusion present. Allergies No Known Allergies Allergy (Verified 12/03/24 14:18) HPI HPI OV- Discuss L knee : Details: Josh is a 54 year old male who presents today for a follow up of his left knee. He was last seen with Christopher Thomas where he reported a twisting injury to the left knee at the beginning of this year. MRI was obtained and reviewed with a plan to refer for further surgical discussion. He describes sharp medial left knee pain with twsiting and hyper flexion. He denies locking. It is not improving and is limiting his ability to engage in daily activities without pain. [facility] Social History Alcohol intake: former Patient Tobacco Use Status: Former Tobacco user Current occupational status: disabled Current occupation: right hand dominant Physical Exam Vital Signs: BMI result Body Mass Index 37.3 Const General: cooperative, healthy appearing, no acute distress, well developed and alert HEENT Head: Yes normal to inspection, Yes normocephalic and Yes atraumatic Mouth: moist mucous membranes Eyes General: appearance normal, both eyes and all related structures EOM: EOMs intact bilaterally Chest Other: no audible wheezing. Resp Other: No audible wheezing Effort & Inspection: normal respiratory effort Cardio Other: Radial pulse palpable with no rythmic abnormalities Back/Spine/Pelvis Cervical Spine: normal cervical lordosis Skin General skin exam: no rashes or lesions noted Neuro General: no focal motor deficits Extrem Other: Full ROM left knee with TTP medial joint line and + medial Steinmen's Psych Appearance: grossly normal and well kempt Mental Status: mental status grossly normal Speech and movement: Normal speech and movement present Affect: normal affect Attitude: cooperative Results Reviewed Results Reviewed: I personally reviewed the MR images. MPRESSION: 1. Complex horizontal cleavage tear of the body and posterior horn of the medial meniscus. 2. The Lateral meniscus, and major ligamentous structures are otherwise intact. 3. 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 Small amount of bone marrow edema involving the posterolateral corner of the medial tibial plateau, likely degenerative or possibly related to a small contusion. 4. Minimal degenerative arthritis in the patellofemoral compartment. 5. Small joint effusion present. Assessment & Plan Assessment & Plan (1) Tear of meniscus of left knee: Code(s): S83.207A - Unspecified tear of unspecified meniscus, current injury, left knee, initial encounter Category: Medical Plan: THis is an active 54 yo M with a symp[tomatic left knee medial meniscus tear. This occurred over 6 months ago and is still symptomatic. I recommend left knee . I discussed the risks benefits and alternatives including but not limited to the risk of pain, infection, stiffness, need for further surgery as well as potential medical complications such as blood clots, pulmonary embolism and cardiac complications. I answered his questions and he expressed understanding. We will proceed forward accordingly. Coding Level of Care Code Est Pt Level 4 (13292) Diagnoses Tear of meniscus of left knee S83.207A
[2024-12-03 14:14] VITALS: BMI 37.3
--- OUTSIDE RECORDS SUMMARY | 2024-12-03 16:44 | XMS_ITS | Clinical Summary ---
Author Organization [facility] Health Address [address] [place] [address] Care Team Providers Care Airplane Pilot Supervisor Name Role Phone Unavailable Primary Care [...]
--- OUTSIDE RECORDS SUMMARY | 2024-12-03 16:44 | XMS_ITS | Encounter Summary ---
Author Organization [facility] Health Address [address] [place] [address] Care Team Providers Care Equal Opportunity Director Name Role Phone Unavailable Primary Care Provider Unavailabl e Prior Encounters Date Type Department Care Team Description 03/19/2019 Converted 13x Documents [facility] [address] [place] [address] <No scans attached> 03/19/2019 Converted CPS Chart Documents [facility] [address] [place] [address] <No scans attached> Plan of [...]
== END 2024-12-03 15:15 | disposition home or self-care (01) ==
LOC: HO.HOS 14:12
PROVIDERS: PCP Nurse Practitioner Family; Visit Provider Orthopaedic Surgery
DX: S83.232A Complex tear of medial meniscus, current injury, left knee, initial encounter (principal)
CPT/HCPCS: 99214

== ENCOUNTER → 2024-12-03 14:11 | Outpatient (BNVA) | payer OTHER, SELFPAY | PROVIDERS: PCP Nurse Practitioner Family; Visit Provider Orthopaedic Surgery | DX: S83.207A Unspecified tear of unspecified meniscus, current injury, left knee, initial encounter (principal); X50.1XXA Overexertion from prolonged static or awkward postures, initial encounter; Y93.9 Activity, unspecified; Y92.9 Unspecified place or not applicable; Y99.9 Unspecified external cause status | CPT/HCPCS: 99212 ==

== ENCOUNTER 2024-12-14 13:09 | Outpatient (AMB) | payer OTHER, SELFPAY ==
--- NOTE | 2024-12-14 13:10 | A.OFFPC_ITS ---
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 Academic Administrator Required: No Allergies No Known Allergies Allergy (Verified 12/14/24 13:22) Medication List - Last Reconciled 12/14/24 by SAM Zavala- aspirin 81 mg PO DAILY atenolol 50 mg PO . DAILY@1300 atorvastatin 80 mg PO .DAILY@1300 benztropine 2.5 mg PO BID divalproex ER 2,000 mg PO .DAILY@1300 metformin 1,000 mg PO BEDTIME perphenazine 8 mg PO BID quetiapine (Seroquel) 500 mg PO BEDTIME [vitamin E ] Tobacco use date assessed: 12/14/24 Dental Screening Dental Screen Date: 12/14/24 Did you have a dental visit in the last 12 months?: Yes Did you have a dental problem in the last 6 months where you did not have access to dental care?: No Was dental information given to patient?: Patient has dentist HPI HPI Comments History of Present Illness Details 54 y/o M with DM2, HLD, HTN, Schizophren ia, VALERY, CHLOÉ, Obesity Social: disabled Surgery: none Fhx: Mom alive, Dad ; 1 sister alive and well. Health Maintenance Tdap declined Flu declined Colon has never had; cologaurd ordered today Specialist Ortho Prescriber and counselor Optho wears glasses, reports done in the last 6 mo, negative retinopathy [facility]) History of Present Illness The patient is a 54-year-old male presenting with a preoperative examination and complete physical examination. Type 2 Diabetes Mellitus with Complications: - Diabetes is managed with metformin. - A1c recorded at 6.3. Essential Hypertension: - Controlled with atenolol. Hyperlipidemia: - Managed with atorvastatin and daily as pirin, which will be stopped one week before surgery. Schizophrenia: - Managed with multiple medications and counseling. Preoperative Evaluation: - No prior surgeries; EKG shows normal s inus rhythm. - Blood work will be conducted for pre-s urgical clearance. Social History - Denies use of tobacco, alcohol, and re creational drugs. - [facility] - [facility] follow-[facility] and [facility]eling [facility]. - Recently had an eye exam; no diabetes- related eye complications noted. - No history of chest pain or exercise-i nduced dyspnea. Review of Systems - Cardiovascular: Denies chest pain; rep orts ability to climb stairs without shortness of breath. - Respiratory: Denies asthma; no history of COPD. - Neurological: Denies dizziness. - Musculoskeletal: No reported joint iss ues with current mobility. Occasional numbness in feet, no tingling or sores. - Dietary: Diet management not discussed . - Ophthalmologic: Reports recent eye exa m with no diabetes-related findings. - Gastrointestinal: Denies anemia-relate d symptoms. - Psychological: Active psychiatric lynne perkins; attending counseling sessions. Physical Exam General: Well developed, well nourished, in no acute distress. Appears stated age. Head: Normocephalic, atraumatic. Eyes: Pupils are equal, round and reactive to light and accommodation. Conjunctivae are clear. Scleras nonicteric bilat. Vision grossly normal. Ears: TMs clear AU, EACS WNL Nose: Patent, without discharge. Neck: No carotid bruit bilat. Supple, no adenopathy or thyromegaly. Breast: Edu on SBE Lungs: Clear to auscultation bilaterally. No rales, rhonchi or wheeze noted. Good air flow in all culp. Heart: Regular rate and rhythm. No murmurs, click, rubs or gallops are noted. Abdomen: Bowel sounds present in all quadrants. The abdomen is soft, nontender, with no masses or organomegaly noted. No hernias are noted. : Deferred. Reviewed JAYY & recommendations Pulses: Peripheral pulses are equal and palpable bilaterally. Extremities: No clubbing, cyanosis nor edema is noted. + varicose veins, fungal toe nails Neurologic: Gait and station normal. Cranial Nerves 2-12 intact. Motor strength grossly symmetrical and intact. No sensory loss. Balance normal. Tremors noted. Skin: No rashes, ulcers, or lesions noted. Turgor is good. Skin color is good. Hair and nails are without abnormalities. Psych: Normal eye contact, affect and mood appropriate, and normal interactions. Patient is alert and appropriate to context. Surgery Type: Left Knee Arthroscopy with medial meniscectomy Anesthesia Type: General Surgeon: Dr Kartik Hansen Date: 12/19/24 Any past surgical procedures: None Any complications from anesthesia or in post-op period: has never had anesthesia ASA or NSAID Use: on hold as directed Current smoker: denies Alcohol use: denies Drug use: denies METs: > 4 climb flight of stairs, golf, walk, yardwork Medical history: Asthma Denies COPD Denies Obesity BMI 37.2 Diabetes Y A1c 6.3% IL < 6 weeks, unstable angina, CHF, severe valve disease: Denies Testing EKG shows normal sinus rhythm with normal intervals and axis, no acute ischemia or arrhythmia. Labs today: See below. Discussion Notes During the visit, the patient and I discussed the preoperative evaluation process, emphasizing the importance of discontinuing aspirin and vitamin E one week before surgery. The patient will complete preoperative labs today to confirm his hematologic and renal status. We reviewed the results of the current EKG, which showed normal sinus rhythm, and A1c, which recorded at 6.3, reflecting well-controlled diabetes. We addressed the adherence to medications for managing his chronic conditions and the need for continued use of metformin for diabetes, atenolol for hypertension, atorvastatin for hyperlipidemia, and psychiatric medications. The process for surgical clearance involves confirming the results from today's tests, with blood work being done shortly after the consultation. I informed him that he would be notified should any lab results be abnormal; otherwise, clearance notification will be sent to the surgeon. We discussed ongoing follow-up at the [facility] and agreed to an annual visit with me as an additional civilian provider. He was advised to engage in regular eye examinations. Patient was given time to ask questions. All questions were answered to their satisfaction. Assessment and Plan 1. Type 2 Diabetes Mellitus with Complic ations - Continue metformin; A1c stable. 2. Essential Hypertension - Maintain atenolol; monitor BP. 3. Hyperlipidemia - Ongoing atorvastatin; hold aspirin pre -surgery. 4. Schizophrenia - Cont scheduled psychiatric meds and co unseling. 5. Preoperative Evaluation RCRI is Class 0 Risk Stratification: 0.5% Patient is medically cleared to proceed. Labs show very mild anemia, this would not be a contraindication to proceed. Patient Instructions Aspirin and NSAIDS should be discontinued one week before surgery to prevent excessive bleeding. If you are a smoker, there is increase risk of post surgical complications. Cessation is encouraged. Follow up with surgeon and all recommendations pre and post operatively. - Stop taking aspirin and vitamin E a we ek before surgery. - Go for lab work before leaving today. - Wait for my contact only if lab result s indicate a change. - Reply to home test kit for colon cance r screening. - Contact me if you feel ill or need med ical attention. - RTO 1 year CPE, sooner PRN Health Maintenance - Instructed to discontinue aspirin one week before surgery. - Discussed completed hemoglobin A1c wit h a value of 6.3. - Recommended diabetes and eyecare follo w-up. - Colon cancer home stool kit ordered fo r screening purposes. Consent Patient was informed and verbally consented to the use of an ambient scribe for clinic note documentation during this visit. An additional 30 minutes was spent addressing the problem(s) noted at todays visit. This includes time spent before the visit reviewing the chart, time spent during the visit, and time spent after the visit on documentation reviewing laboratory results, diagnostic imaging, medications, performing a medically necessary evaluation, counseling on diagnoses, care coordination, ordering appropriate tests, ordering appropriate medications, review of tests performed by other providers, reporting test results with the patient, communication with other healthcare providers. [facility] Medical History (Updated 12/17/24 @ 07:07 by Akanksha Gomez [facility]) Anxiety Bipolar 1 disorder Diabetes HLD (hyperlipidemia) HTN (hypertension) No pertinent family history CHLOÉ (obstructive sleep apnea) Schizophrenia Tremor of both hands Surgical History (Updated 12/11/24 @ 12:27 by Kalpana Pozo RN) No pertinent past surgical history Social History (Updated 12/14/24 @ 13:22 by Leonor Jasmine MA) Household Members: None Both parents involved: No Caregiver staying overnight: No Housing: Apartment Are you a primary pharmacist critical care to a significant other at home: No Do you presently have visiting nurse or other home services: Yes (mental health loan and credit manager) 75 years or older and lives alone: No Alcohol intake: former Patient Tobacco Use Status: Former Tobacco user Tobacco use type: Cigarette e-Cigarette/Vaping Use: Never Used Second Hand Smoke Exposure: No Current occupational status: disabled Current occupation: right hand dominant Current occupational exposures/hazards: No Cognitive needs: No Hearing needs: No Vision needs: Yes (wear glasses) Questionnaire PHQ-9 Over the last 2 weeks, how often have you been bothered by any of the following problems? 1. Little interest or pleasure in doing things: several days 2. Feeling down, depressed, or hopeless: not at all 3. Trouble falling or staying asleep, or sleeping too much: not at all 4. Feeling tired or having little energy: not at all 5. Poor appetite or overeating: not at all 6. Feeling bad about yourself - or that you are a failure or have let yourself or your family down: not at all 7. Trouble concentrating on things, such as reading the newspaper or watching television: not at all 8. Moving or speaking so slowly that other people could have noticed. Or the opposite - being so fidgety or restless that you have been moving around a lot more than usual: not at all 9. Thoughts that you would be better off or of hurting yourself in some way: not at all Total score: 1 Depression Screening Interpretation: Negative Depression Screening Done: Yes 18205 - PHQ-9 Billing: Yes Source: Developed by Drs. Brian Razo, Mary Beth Fine, Ivan Walters and colleagues, with an educational filiberto from [employer]. Thrive Questionnaire Date Thrive assessed: 12/14/24 I am a: Patient What is your living situation today?: I have a steady place to live Within the past 12 months, did the food you bought not last and you didn't have the money to get more?: Never true Within the past 12 months, did you worry whether your food would run out before you got money to buy more?: Never true Do you have trouble paying for medicines?: No Do you have trouble getting transportation to medical appointments?: No Do you have trouble paying your heating and electricity bill?: No Do you have trouble taking care of your child, family member or friend?: No Do you have trouble with day-to-day activities such as bathing, preparing meals, shopping, managing finances, etc.?: Yes Are you currently unemployed and looking for a job?: No Are you interested in more education?: No THRIVE Score: 0 AUDIT C Alcohol Use Questionnaire (AUDIT-C) 1. How often do you have a drink containing alcohol?: Never 3. How often do you have six or more drinks on one occasion?: Never Total Score: 0 VALERY-7 AMB Questionnaire VALERY-7 Date VALERY - 7 assessed: 12/14/24 Feeling nervous, anxious, or on edge: 1 = Several days Not being able to stop or control worryin = Not at all Worrying too much about different things: 2 = More than half the days Trouble relaxin = Several days Being so restless that it is hard to sit still: 0 = Not at all Becoming easily annoyed or irritable: 0 = Not at all Feeling afraid as if something awful might happen: 0 = Not at all Total VALERY-7 score (0-4 normal; 5-9 mild; 10-14 moderate; 15-21 severe): 4 Source: Developed by Drs. Brian Razo, Mary Beth Fine, Ivan Walters and colleagues, with an educational filiberto from [employer]. VALERY-7 Assessment Billing VALERY-7 Assessment Tool: VALERY-7 Assessment 36566 Physical exam (Primary Care) Vital Signs: Last Vital Signs Temp 97.6 F 12/14/24 13:19 Pulse 83 12/14/24 13:19 Resp 12 12/14/24 13:19 BP 105/67 12/14/24 13:19 Pulse Ox 94 12/14/24 13:19 Oxygen Delivery Method Room Air 12/14/24 13:19 BMI result Body Mass Index 37.2 BMI Assessment/Plan discussion: High BMI High, discussed plan: lifestyle Tobacco/Smoking Status: Tobacco use Status Tobacco use date assessed 12/14/24 12/14/24 13:13 Patient Tobacco Use Status Former Tobacco user 12/14/24 13:22 Tobacco use type Cigarette 12/14/24 13:22 e-Cigarette/Vaping Use Never Used 12/14/24 13:22 PHQ-9: PHQ-9 Score PHQ-9: Total score 1 12/14/24 14:34 Depression Screening Interpretation: Negative Thrive Assessment: Date of Thrive Assessment Date Thrive assessed 12/14/24 12/14/24 13:45 Office Procedures EKG [id number], Complete Results AMB Hemoglobin A1c AMB Hemoglobin A1c 6.3 % Last Edit by Leonor Jasmine MA on 12/14/24 13:33 Results Reviewed Results Reviewed: Laboratory Last Values Hgb A1c (Clinic) 6.3 % (4.0-6.0) H 12/14/24 13:32 RUN: 12/17/24 0705 PAGE 1 [facility] [address] [place] [phone] Prospect Manager: Cruzito Lockwood M.D. Specimen Inquiry Name: Josh Paniagua Francisco J Age/Sex: 54/M : 1970 Unit#: [id number] Attend Dr: Akanksha Gomez Re12/14/24 Status: DEP REF Location: [facility] Disch: SPEC : [id number] [place]: 12/14/24 STATUS: COMP REQ : [id number] RECD: 12/14/[address] [facility] [address]: Akanksha Gomez COMP: 12/14/24 ENTERED: 12/14/[address] [facility] [address]: ORDERED: CBC No Diff Test Result Flag Reference WBC 3.5 L 4.8-10.8 X10*3/uL RBC 4.28 L 4.60-5.80 X10*6/uL HGB 13.7 L 14.0-18.0 g/dl HCT 40.9 L 42.0-52.0 % MCV 95.6 80.0-98.0 fL MCH 32.0 27.0-33.0 pg MCHC 33.5 31.0-36.0 g/dl RDW 13.6 11.0-16.0 % PLT 185 160-400 X10*3/uL MPV 10.3 9.4-12.4 fL NRBC Pct Auto 0.0 0.0-0.2 /100WBC NRBC Abs Auto 0.000 0.0-0.012 X10*3/uL RUN: 12/17/24 0706 PAGE 1 [facility] [address] [place] [id number] Prospect Manager: Cruzito Lockwood M.D. Specimen Inquiry Name: Josh Paniagua Francisco J Age/Sex: 54/M : 1970 Unit#: [id number] Attend Dr: Akanksha Gomez Re12/14/24 Status: DEP REF Location: [facility] Disch: SPEC : [id number] [place]: 12/14/24 STATUS: COMP REQ : [id number] RECD: 12/14/[address]: Akanksha GomezPCRISTO COMP: 12/14/24 ENTERED: 12/14/[address] [facility] [address]: ORDERED: CMP, Lipid Panel, Vitamin D 25-OH Test Result Flag Reference Sodium 143 135-145 mmol/L Potassium 4.6 3.3-5.1 mmol/L CL 105 96-108 mmol/L CO2 29 22-29 mmol/L Gap 14 12-20 BUN 16 9-16 mg/dL Creat 0.81 0.5-1.4 mg/dL eGFR > 60 Chronic Kidney Disease: Estimated GFR < 60 mL/min/1.73m2 Severe Kidney Disease: Estimated GFR < 15 mL/min/1.73m2 Glucose, Random 100 60-115 mg/dL CA 9.4 8.4-10.2 mg/dL Total Bili 0.6 0.0-1.0 mg/dL AST (GOT) 29 5-37 U/L ALT (GPT) 21 0-40 U/L Protein, Total 7.4 6.5-8.0 g/dL Alb 4.4 3.5-5.0 g/dL Triglyceride 169 H <150 mg/dL Desirable Triglyceride: less than 150 mg/dL Borderline High Triglyceride 150-199 mg/dL High Triglyceride: 200-499 mg/dL Very High Triglyceride: greater than or equal to 5OO mg/dL Cholesterol 182 <200 mg/dL Desirable Cholesterol: less than 200 mg/dL Borderline High Cholesterol: 200-239 mg/dL High Cholesterol: greater than 239 mg/dL LDL Calculated 106 H <100 mg/dL Desirable LDL: less than 100 mg/dL Near Optimal/Above Optimal LDL: 110-129 mg/dL Borderline High LDL: 130-159 mg/dL High LDL: 160-189 mg/dL Very High LDL: greater than or equal to 190 mg/dL HDL 43 >40 mg/dL Desirable HDL: greater than 40 mg/dL Note: This HDL assay may give artificially low results in patients with liver disease. Alk Phos 47 39-117 U/L Vitamin D 25-OH 71.6 >30 ng/mL Health Based Reference Values* < 20 ng/mL Deficient 20-30 ng/mL Insufficient > 30 ng/mL Sufficient *Greyson ROGERS. N Engl J Med. 2007;357:266-280 There is no well-established upper level of normal vitamin D levels. Some laboratories use 50 ng/mL as an upper limit of normal. However, toxicity is patient-dependent and may occur at any level. Careful correlation with the patient's presentation is necessary and, if there is concern for vitamin D toxicity, treatment should be considered irrespective of the serum level. Care must be taken in interpreting Vitamin D results from different laboratories and methodologies. Published data demonstrated that results from patients undergoing hemodialysis may show a negative bias when tested with various automated 25-OH vitamin D assays when compared to LC-MS/MS. When testing samples from patients whose predominant form of Vitamin D is Vitamin D2, such as patients receiving Vitamin D2 supplementation, results that are subtherapeutic should be confirmed with another method such as LC-MS/MS. END OF REPORT END OF REPORT Coding Level of Care Code New Pt Level 4 (77862) New Pt Prev Care 40-64y(85272) Diagnoses Encounter to establish care with new provider Z76.89 Schizophrenia, unspecified type F20.9 Schizophrenia type: unspecified VALERY (generalized anxiety disorder) F41.1 Hypertension associated with diabetes E11.59; I15.2 Hyperlipidemia associated with type 2 diabetes mellitus E11.69; E78.5 Diabetes mellitus type 2 with complications E11.8 CHLOÉ (obstructive sleep apnea) G47.33 Pre-op exam Z01.818 Laboratory exam ordered as part of routine general medical examination Z00.00 Obesity (BMI 30-39.9) E66.9 Influenza vaccination declined Z28.21 Tetanus, diphtheria, and acellular pertussis (Tdap) vaccination declined Z28.21 Healthcare maintenance Z00.00 Encounter for general adult medical examination without abnormal findings Z00.00 Mild anemia D64.9 CPT Codes EKG - CPT: [id number], Complete ([id number]) Additional Codes VALERY-7 Assessment Billing - VALERY-7 Assessment Tool: VALERY-7 Assessment 77678 ([id number]) PHQ-9 - 77428 - PHQ-9 Billing: Yes ([id number]) Assessment & Plan Assessment & Plan (1) Encounter to establish care with new provider: Code(s): Z76.89 - Persons encountering health services in other specified circumstances (2) Schizophrenia: Code(s): F20.9 - Schizophrenia, unspecified Category: Medical Qualifiers: Schizophrenia type: unspecified Qualified Code(s): F20.9 - Schizophrenia, unspecified (3) VALERY (generalized anxiety disorder): Code(s): F41.1 - Generalized anxiety disorder Category: Medical (4) Hypertension associated with diabetes: Code(s): E11.59 - Type 2 diabetes mellitus with other circulatory complications; I15.2 - Hypertension secondary to endocrine disorders Category: Medical (5) Hyperlipidemia associated with type 2 diabetes mellitus: Code(s): E11.69 - Type 2 diabetes mellitus with other specified complication; E78.5 - Hyperlipidemia, unspecified Category: Medical (6) Diabetes mellitus type 2 with complications: Comment: HTN HLD Code(s): E11.8 - Type 2 diabetes mellitus with unspecified complications Category: Medical (7) CHLOÉ (obstructive sleep apnea): Comment: no CPAP use Code(s): G47.33 - Obstructive sleep apnea (adult) (pediatric) Category: Medical (8) Pre-op exam: Code(s): Z01.818 - Encounter for other preprocedural examination Plan: RCRI is Class 0 Risk Stratification: 0.5% Patient is medically cleared to proceed. Labs show very mild anemia, this would not be a contraindication to proceed. (9) Laboratory exam ordered as part of routine general medical examination: Code(s): Z00.00 - Encounter for general adult medical examination without abnormal findings Category: Medical (10) Obesity (BMI 30-39.9): Code(s): E66.9 - Obesity, unspecified Category: Medical (11) Influenza vaccination declined: Onset Date: ~12/14/24 Code(s): Z28.21 - Immunization not carried out because of patient refusal Category: Medical (12) Tetanus, diphtheria, and acellular pertussis (Tdap) vaccination declined: Onset Date: ~12/14/24 Code(s): Z28.21 - Immunization not carried out because of patient refusal Category: Medical (13) Healthcare maintenance: Comment: DECLINED TDAP, FLU 12/14/24 [place] ORDERED 12/14/24 PSA ORDERED 12/14/24 DM EYE 2024, NEED REPORT QUOCKadeem [place] Code(s): Z00.00 - Encounter for general adult medical examination without abnormal findings Category: Medical (14) Encounter for general adult medical examination without abnormal findings: Onset Date: ~12/14/24 Code(s): Z00.00 - Encounter for general adult medical examination without abnormal findings Category: Medical (15) Mild anemia: Code(s): D64.9 - Anemia, unspecified Category: Medical Plan . Orders: Orders Complete Blood Count no Diff 12/14/24 E11.59 - Type 2 diabetes mellitus with other circulatory complications, E11.69 - Type 2 diabetes mellitus with other specified complication, E11.8 - Type 2 diabetes mellitus with unspecified complications, E78.5 - Hyperlipidemia, unspecified, I15.2 - Hypertension secondary to endocrine disorders, Z00.00 - Encounter for general adult medical examination without abnormal findings Comprehensive Met. Panel 12/14/24 E11.59 - Type 2 diabetes mellitus with other circulatory complications, E11.69 - Type 2 diabetes mellitus with other specified complication, E11.8 - Type 2 diabetes mellitus with unspecified complications, E78.5 - Hyperlipidemia, unspecified, I15.2 - Hypertension secondary to endocrine disorders, Z00.00 - Encounter for general adult medical examination without abnormal findings Lipid Panel 12/14/24 E11.59 - Type 2 diabetes mellitus with other circulatory complications, E11.69 - Type 2 diabetes mellitus with other specified complication, E11.8 - Type 2 diabetes mellitus with unspecified complications, E78.5 - Hyperlipidemia, unspecified, I15.2 - Hypertension secondary to endocrine disorders, Z00.00 - Encounter for general adult medical examination without abnormal findings Microalbumin, Random (w Creat) 12/14/24 E11.59 - Type 2 diabetes mellitus with other circulatory complications, E11.69 - Type 2 diabetes mellitus with other specified complication, E11.8 - Type 2 diabetes mellitus with unspecified complications, E78.5 - Hyperlipidemia, unspecified, I15.2 - Hypertension secondary to endocrine disorders, Z00.00 - Encounter for general adult medical examination without abnormal findings Vitamin B12 and Folate 12/14/24 E11.59 - Type 2 diabetes mellitus with other circulatory complications, E11.69 - Type 2 diabetes mellitus with other specified complication, E11.8 - Type 2 diabetes mellitus with unspecified complications, E78.5 - Hyperlipidemia, unspecified, I15.2 - Hypertension secondary to endocrine disorders, Z00.00 - Encounter for general adult medical examination without abnormal findings AMB Hemoglobin A1c 12/14/24 Z13.9 - Encounter for screening, unspecified Prostate Specific Antigen Scr 12/14/24 E11.59 - Type 2 diabetes mellitus with other circulatory complications, E11.69 - Type 2 diabetes mellitus with other specified complication, E11.8 - Type 2 diabetes mellitus with unspecified complications, E78.5 - Hyperlipidemia, unspecified, I15.2 - Hypertension secondary to endocrine disorders, Z00.00 - Encounter for general adult medical examination without abnormal findings Vitamin D 25-OH Total 12/14/24 E11.59 - Type 2 diabetes mellitus with other circulatory complications, E11.69 - Type 2 diabetes mellitus with other specified complication, E11.8 - Type 2 diabetes mellitus with unspecified complications, E78.5 - Hyperlipidemia, unspecified, I15.2 - Hypertension secondary to endocrine disorders, Z00.00 - Encounter for general adult medical examination without abnormal findings Referrals Cologuard Test Z12.11 - Encounter for screening for malignant neoplasm of colon Patient Instructions: Walk-In Care (Urgent Care): We Make it Easy Walk-in for urgent medical issues such as: ? Seasonal Allergies ? Insect Bites ? Cough ? Diarrhea ? Acute Asthma Attacks ? Back, Knee or Joint Pain ? Ear Infection ? Fever without a Rash ? Headaches ? Nausea ? [place] [facility], Rash or Skin Irritation ? Sore Throat ? Sports Physicals ? Vomiting Most insurances are accepted. Patients do not need to be part of the [facility] to seek care at the walk-in clinic. Locations [address] [place] [address] Open Tuesday through Tuesday 8am-5pm *Hours may vary due to staffing availability. To confirm Walk-In Care hours please call. [address] [facility] , [place] [address] ? [phone] [facility] Walk-In Care in [place] provides services to ages 18 and over. Open Tuesday-Tuesday: 7 a.m. to 5 p.m. and Tuesday: 9 a.m. to 3 p.m.* *Hours may vary due to staffing availability. To confirm Walk-In Care hours in [place], please call [phone]. [address] [place] [address] ? [phone] [facility] in [place] provides services to ages 12 and over. Open Tuesday-Tuesday: 8 a.m. to 5 p.m. Hours may vary due to staffing availability. To confirm Walk-In Care hours in [place], please call [phone]. LABORATORY SERVICES: [facility] Lab ? Primary Location [address] [place] [address] Tuesday through Tuesday 6:00 AM ? 5:00 PM Tuesday 7:00 AM ? 11:00 AM* [phone] The [facility] Lab is centrally located near the front entrance of the [facility] for easy outpatient access. Convenient parking is provided for outpatients. *Hours may vary due to staffing availability. To confirm Laboratory hours for any location, please call [phone]. Offsite Location For your convenience, we offer offsite laboratory draw stations at the following locations: [address] [place] [address] ? [facility] [address], [address] Tuesday through Tuesday 7:30 AM ? 1:00 PM* [phone] *Hours may vary due to staffing availability. To confirm Laboratory hours for any location, please call [phone]. [place] ? [address], [place] Tuesday through Tuesday 6:00 AM ? 3:30 PM* Tuesday 6:30 AM ? 3 PM* [phone] *Hours may vary due to staffing availability. To confirm Laboratory hours for any location, please call [phone]. [address] [facility] Tuesday through Tuesday 7:30 AM ? 4:00 PM* [phone] *Hours may vary due to staffing availability. To confirm Laboratory hours for any location, please call [phone]. [address] [facility] Tuesday through 9:00 AM ? 4:00 PM* *Hours may vary due to staffing availability. To confirm Laboratory hours for any location, please call [phone]. Appointments are not necessary. Walk-ins are welcome. Like all the departments throughout the [facility], our Lab undergoes frequent reviews to ensure the quality and accuracy of test results, and our staff takes special pride in its status as a nationally accredited facility. Patient Portal: [facility] ONE PATIENT. ONE RECORD. BETTER CARE. [facility] has a fully integrated, cutting- edge mobile electronic health information system that has revolutionized the way we care for our patients and manage our organization. This system improves communication and coordination enabling us to provide safe, higher-quality care, and an overall positive experience for staff and patients. Our first priority, as always, is to deliver the highest quality care possible. The system is running in the background supporting that priority. This portal is for all [facility] services and practices. If you are experiencing any technical difficulties with enrolling or logging into the Patient Portal please complete the [facility] Patient Portal Technical Support Form. [facility] now offers a new secure on-line interactive tool for patients to review their health information ? ?Patient Portal. This interactive web portal will enable patients and their families to take an active role in their care by providing easy, secure access to their health information via the internet. The Patient Portal provides patients with instant access to their health information, including laboratory results, medications, allergies, demographic information, visit history, and more. In addition to managing their own care, parents and health care proxies with authorized consent will appreciate the ability to access the records of those individuals for whom they provide care. Please note: if you wish to gain access (Proxy) to another patient?s portal, you will be required to come to the Medical Records Department in person at [facility]. Both the patient giving proxy access and the proxy will need to provide photo identification and complete the appropriate authorization. The Patient Portal also allows track their appointments online. The [facility] Patient Portal also saves patients time by allowing them to submit updates to their demographic and contact information prior to their visits. Portal email notifications will also alert patients to any new activity on their portal, such as test results and new appointments. In order to initially enroll in the [facility] Patient Portal, you will need to enter some required information including the following: * your [facility] Medical Record number * your personal home email address * name * date of Please note: In order to enroll in the [facility] Patient Portal, we need to have your email address on file in your electronic medical record. ?The email address needs to be specific for one person (yourself) in order for your Portal enrollment to be successful. ?You can update your email address in person with our Registration staff when you are registering for a hospital visit. ?Otherwise, you will need to come to the Health Information Management (Medical Records) Department at [facility]. ?We are open from Tuesday ? Tuesday from 7:30 a.m. ? 4:30 p.m. ?You will be required to present a photo id. Once you have successfully enrolled in the Patient Portal, you will receive a one-time user id and password for the Portal, sent to your email address. ?This will allow you to log into the Patient Portal within 99 hrs and reset your own logon id and password, and define personal security questions. ?Once your perma nent login and password have been set, you can log into the [facility] Patient Portal at any time via the blue button above or from the Portal Logon button on any page of the [facility] website. [facility] encourage all of our patients to enroll in Patient Portal as it presents a valuable opportunity for patients and their families to actively participate in their care and stay healthy Welcome to [facility]. ?We look forward to working with you. Health screenings for men You should visit your health care provider regularly, even if you feel healthy. The purpose of these visits is to: Screen for medical issues Assess your risk for future medical problems Encourage a healthy lifestyle Update vaccinations and other preventive care services Help you get to know your provider in case of an illness Information Even if you feel fine, you should still see your provider for regular checkups. These visits can help you avoid problems in the future. For example, the only way to find out if you have high blood pressure is to have it checked regularly. High blood sugar and high cholesterol level also may not have any symptoms in the early stages. Simple blood tests can check for these conditions. There are specific times when you should see your provider or receive specific health screenings. The [place] Preventive Services Task Force publishes a list of recommended screenings. Below are screening guidelines for men ages 40 to 64. BLOOD PRESSURE SCREENING Have your blood pressure checked at least once every year. Watch for blood pressure screenings in your area. Ask your provider if you can stop in to have your blood pressure checked. Ask your provider if you need your blood pressure checked more often if: You have diabetes, heart disease, kidney problems, or are overweight or have certain other health conditions You have a first-degree relative with high blood pressure You are Black Your blood pressure top number is from 120 to 129 mm Hg, or the bottom number is from 70 to 79 mm Hg If the top number is 130 mm Hg or greater or the bottom number is 80 mm Hg or greater, this is considered stage 1 hypertension. Schedule an appointment with your provider to learn how you can lower your blood pressure. Effects of age on blood pressure CHOLESTEROL SCREENING Cholesterol screening should begin at age 35 for men with no known risk factors for coronary heart disease. Repeat cholesterol screening should take place: Every 5 years for men with normal cholesterol levels More often if changes occur in lifestyle (including weight gain and diet) More often if you have diabetes, heart disease, kidney problems, or certain other conditions COLORECTAL CANCER SCREENING If you are under age 45, talk to your provider about getting screened. You may need to be screened if you have a strong family history of colon cancer or polyps. Screening may also be considered if you have risk factors such as a history of inflammatory bowel disease or polyps. If you are age 45 to 75, you should be screened for colorectal cancer. There are several screening tests available: A stool-based fecal occult blood (gFOBT) or fecal immunochemical test (FIT) every year A stool sDNA test every 1 to 3 years Flexible sigmoidoscopy every 5 years or every 10 years with stool testing FIT done every year CT colonography (virtual colonoscopy) every 5 years Colonoscopy every 10 years You may need a colonoscopy more often if you have risk factors for colorectal cancer, such as: Ulcerative colitis A personal or family history of colorectal cancer A history of growths in your colon called adenomatous polyps DENTAL EXAM Go to the dentist once or twice every year for an exam and cleaning. Your dentist will evaluate if you have a need for more frequent visits. DIABETES SCREENING All adults who do not have risk factors for diabetes should be screened starting at age 35 and repeated every 3 years. If you have other risk factors for diabetes, such as a first degree relative with diabetes, overweight or obesity, high blood pressure, prediabetes, or a history of heart disease, you may be tested more often. If you are overweight and have other risk factors, such as high blood pressure and are planning to become , screening is recommended. EYE EXAM Have an eye exam every 2 to 4 years ages 40 to 54 and every 1 to 3 years ages 55 to 64. Your provider may recommend more frequent eye exams if you have vision problems or glaucoma risk. Have an eye exam that includes an examination of your retina (back of your eye) at least every year if you have diabetes. IMMUNIZATIONS Commonly needed vaccines include: Flu shot: get one every year COVID-19 vaccine: ask your provider what is best for you Tetanus-diphtheria and acellular pertussis (Tdap) vaccine: have as one of your tetanus-diphtheria vaccines if you did not receive it as an adolescent Tetanus-diphtheria: have a booster (or Tdap) every 10 years Varicella vaccine: receive 2 doses if you never had chickenpox or the varicella vaccine and were born in 1980 or after Hepatitis B vaccine: receive 2, 3, or 4 doses, depending on your exact circumstances, if you did not receive these as a child or adolescent, until age 59 Shingles (herpes zoster) vaccine: at or after age 50 Ask your provider if you should receive other immunizations, especially if you have certain medical conditions, such as diabetes or are at increased risk for some diseases such as pneumonia. INFECTIOUS DISEASE SCREENING Screening for hepatitis C: all adults ages 18 to 79 should get a one-time test for hepatitis C. Screening for human immunodeficiency virus (HIV): all people ages 15 to 65 should get a one-time test for HIV. Depending on your lifestyle and medical history, you may need to be screened for infections such as syphilis, chlamydia, and other infections. LUNG CANCER SCREENING You should have an annual screening for lung cancer with low-dose computed tomography (LDCT) if: You are age 50 to 80 years AND You have a 20 pack-year smoking history AND You currently smoke or have quit within the past 15 years OSTEOPOROSIS SCREENING If you are age 50 to 64 and have risk factors for osteoporosis, you should discuss screening with your provider. Risk factors can include long-term steroid use, low body weight, smoking, heavy alcohol use, having a fracture after age 50, or a family history of hip fracture or osteoporosis. Osteoporosis PHYSICAL EXAM All adults should visit their provider from time to time, even if they are healthy. The purpose of these visits is to: Screen for diseases Assess risk of future medical problems Encourage a healthy lifestyle Update vaccinations and other preventive care services Maintain a relationship with a provider in case of an illness Your height, weight, and body mass index (BMI) should be checked at every exam. During your exam, your provider may ask you about: Depression and anxiety Diet and exercise Alcohol and tobacco use Safety, such as use of seat belts and smoke detectors Your medicines and risk for interactions PROSTATE CANCER SCREENING If you're 55 through 69 years old, before having the test, talk to your provider about the pros and cons of having a PSA test. Ask about: Whether screening decreases your chance of dying from prostate cancer. Whether there is any harm from prostate cancer screening, such as side effects from testing or overtreatment of cancer when discovered. Whether you have a higher risk of prostate cancer than others. If you are age 55 or younger, screening is not generally recommended. You should talk with your provider about if you have a higher risk for prostate cancer. Risk factors include: Having a family history of prostate cancer (especially a brother or father) Being If you choose to be tested, the PSA blood test is repeated over time (yearly or less often), though the best frequency is not known. Prostate examinations are no longer routinely done on men with no symptoms. Prostate cancer SKIN EXAM Your provider may check your skin for signs of skin cancer, especially if you're at high risk. People at high risk include those who have had skin cancer before, have close relatives with skin cancer, or have a weakened immune system. TESTICULAR EXAM The US Preventive Services Task Force (USPSTF) now recommends against performing testicular self-exams. Doing testicular self-exams has been shown to have little to no benefit.
[2024-12-14 13:19] VITALS: BP 105/67; PULSE 83; RESP 12; TEMP 36.4; O2SAT 94; BMI 37.2
--- OUTSIDE RECORDS SUMMARY | 2024-12-14 15:43 | XMS_ITS | Clinical Summary ---
Author Organization [facility] Address [address] [place] [phone] Phone Care Team Providers Care Header Dock Name Role Phone Pcp, Unknown Primary Care [...] VACCINE (#1) 2024 COVID-19 VACCINE (1 - 2024-2 6 season) 2024 RSV VACCINE (1 - 1-dose 75+ series) 02/15/2047 HEPATITIS A VACCINES Aged Out No long [...] EDT) SODIUM 136 133 - 146 mmol/L [facility] CHLORIDE 99 96 - 108 mmol/L [facility] POTASSIUM 3.3 3.3 - 5.1 mmol/L [facility] CO2 27 21 - 35 mmol/L [facility] BUN 10 6 - 19 mg/dL [facility] CREATININE 0.70 0.5 - 1.5 mg/dL [facility] GLUCOSE 146(H) 70 - 99 mg/dL [facility] CALCIUM 9.2 8.4 - 10.3 mg/dL [facility] EGFR 112 >59 mL/min/1.7 3m2 [facility] Comment:If patient is black, multiply result by 1.159. Estimated glomerular filtration rate calculated using the CKD-EPI equation. ANION GAP 13 10 - 20 mmol/L [facility] Blood 05/08/2019 2:23 PM EDT 05/08/2019 2:30 PM EDT us Gato Ewing MD LAB BLOOD ORDERABLES Fin al Result [address] [address] * (ABNORMAL) Valproic acid (05/07/2019 8:44 AM EDT) VALPROIC ACID 38.5(L) 50.0 - 100.0 ug/mL [facility] Blood 05/07/2019 8:4 4 AM EDT 05/07/2019 8:49 AM EDT us Alisha Murry PA-C LAB BLOOD ORDERABLES Elena l Result Performing Organization Address City/[facility]/ZIP Co de Phone Number [address] [address] from Last 3 Months or Most Recently Relevant to Health Maintenance [place] [address] [address] [place] [address] [facility] [place] [address] [place] [address] [place] [address] , [place] [address] [facility] [place] [address] [address] [place] [address] [facility] Care Teams Header Dock Relationship Specialty Start Date End Date Pcp, Unknown PCP - General 05/07/19 Additional Source Comments The information contained in this document represents components of the legal health record. It is not the complete legal health record.[facility]
== END 2024-12-14 13:49 | disposition home or self-care (01) ==
LOC: HO.HMCFM 13:09
PROVIDERS: PCP Nurse Practitioner Family; Visit Provider Nurse Practitioner Family
DX: Z13.9 Encounter for screening, unspecified (principal)

== ENCOUNTER 2024-12-14 13:09 | Outpatient (REF) | payer OTHER, SELFPAY ==
[2024-12-14 18:35] LABS: Hematocrit 40.9 % (42.0-52.0); Hemoglobin 13.7 g/dl (14.0-18.0); Mean Corpuscular HGB Conc 33.5 g/dl (31.0-36.0); Mean Corpuscular Hemoglobin 32.0 pg (27.0-33.0); Mean Corpuscular Volume 95.6 fL (80.0-98.0); NRBC Abs Auto 0.000 X10*3/uL (0.0-0.012); NRBC Pct Auto 0.0 /100WBC (0.0-0.2); Platelet Count 185 X10*3/uL (160-400); Red Blood Count 4.28 X10*6/uL (4.60-5.80); White Blood Count 3.5 X10*3/uL (4.8-10.8)
[2024-12-14 18:42] LABS: Alanine Aminotransferase 21 U/L (0-40); Albumin Level 4.4 g/dL (3.5-5.0); Alkaline Phosphatase 47 U/L (39-117); Anion Gap 14 (12-20); Aspartate Amino Transferase 29 U/L (5-37); Blood Urea Nitrogen 16 mg/dL (9-16); Calcium 9.4 mg/dL (8.4-10.2); Carbon Dioxide 29 mmol/L (22-29); Chloride 105 mmol/L (96-108); Cholesterol 182 mg/dL (<200); Estimated Glomerular Filt Rate > 60; HDL Cholesterol 43 mg/dL (>40); Potassium 4.6 mmol/L (3.3-5.1); Sodium 143 mmol/L (135-145); Total Protein 7.4 g/dL (6.5-8.0); Triglycerides 169 mg/dL (<150)
[2024-12-14 18:53] LABS: Microalbum/Creatinine Ratio Ur 3.1 ug/mg cr (<30)
[2024-12-14 19:03] LABS: Folate 11.4 ng/mL (> or = 4.0); Vitamin B12 513 pg/mL (200-900)
== END 2024-12-14 13:10 | disposition home or self-care (01) ==
LOC: HO.WFDLDS 13:09
PROVIDERS: PCP Nurse Practitioner Family; Visit Provider Nurse Practitioner Family
DX: Z00.00 Encounter for general adult medical examination without abnormal findings (principal); E78.5 Hyperlipidemia, unspecified; I10 Essential (primary) hypertension; F20.9 Schizophrenia, unspecified; F41.1 Generalized anxiety disorder; G47.33 Obstructive sleep apnea (adult) (pediatric); E66.9 Obesity, unspecified; E11.59 Type 2 diabetes mellitus with other circulatory complications; I15.2 Hypertension secondary to endocrine disorders; E11.69 Type 2 diabetes mellitus with other specified complication; D64.9 Anemia, unspecified; Z68.37 Body mass index [BMI] 37.0-37.9, adult; Z28.21 Immunization not carried out because of patient refusal; Z76.89 Persons encountering health services in other specified circumstances
CPT/HCPCS: 36415; 80053; 80061; 82043; 82306; 82570; 82607; 82746; 83036; 84153; 85027; 93005; 96127; 99386